=== PATIENT | male | born 1995 | race Two or more races ===

== ENCOUNTER → 2024-02-04 | Emergency (ER) | payer OTHER ==
[~2024-02-04] VITALS: Ht 170.2 cm; Wt 125.6 kg
[~2024-02-04] MED LIST: CEFTRIAXONE SODIUM 1,000 MG VIAL IM STA; KETOROLAC TROMETHAMINE 30 MG VIAL IM STA
== END | disposition home or self-care (01) ==
LOC: ER 21:48
DX: J02.8 Acute pharyngitis due to other specified organisms (principal); B96.89 Other specified bacterial agents as the cause of diseases classified elsewhere; Z91.013 Allergy to seafood

== ENCOUNTER 2024-03-04 09:48 | Emergency (ER) | payer OTHER ==
[~2024-03-04] VITALS: Ht 170.2 cm; Wt 127.0 kg
[2024-03-04] MEDS ORDERED: CEFTRIAXONE SODIUM 1,000 MG VIAL IM STA (14:09)
[2024-03-04] MEDS ORDERED: KETOROLAC TROMETHAMINE 30 MG VIAL IM STA (14:09)
== END 2024-03-04 14:41 | disposition home or self-care (01) ==
LOC: ER 09:50
DX: J03.80 Acute tonsillitis due to other specified organisms (principal); Z91.013 Allergy to seafood; Z20.822 Contact with and (suspected) exposure to COVID-19
CPT/HCPCS: 36415; 96372; 99282; J0696; J1885